=== PATIENT | male | born 1945 | race Hispanic/Latino ===

== ENCOUNTER 2019-05-19 05:30 | Day surgery (SDC) | payer OTHER ==
[~2019-05-19] VITALS: Ht 180.3 cm; Wt 117.9 kg
[~2019-05-19 05:30] MED LIST: ALLBUTEROL; AMLO5TAB9 PO; BENZ-51 PO; BUDE10.2 IH; CHLO25TA3 PO; ERGO500014 PO; IBUP-2070 PO; LISI10TA7 PO; OMEGA; SPIRIVA; TAMS-1 PO
[2019-05-19] MEDS ORDERED: SODIUM CHLORIDE 0.9% 1000ML 1,000 ML IV ONE (05:49)
[2019-05-19 06:57] VITALS: BP 111/76
[2019-05-19] MEDS ORDERED: NITROGLYCERIN 5 MG/ML 10 ML VIAL IV ONE (07:11)
[2019-05-19] MEDS ORDERED: IOHEXOL 350 MG/ML 100ML INFUS..BTL IV ONE (07:11)
[2019-05-19] MEDS ORDERED: FENTANYL CITRATE PF 50 MCG/1 ML 2ML VIAL ONE (07:11)
[2019-05-19] MEDS ORDERED: LIDOCAINE HCL 2% 20ML ONE (07:11)
[2019-05-19] MEDS ORDERED: MIDAZOLAM HCL 1 MG/ML 2ML VIAL ONE (07:11)
[2019-05-19] MEDS ORDERED: IOHEXOL-350 50ML VIAL IV ONE (07:11)
[2019-05-19] MEDS ORDERED: PROPOFOL 10 MG/ML 20ML VIAL IV ONE ×2 (09:02→09:12)
[2019-05-19 09:27] VITALS: BP 82/45
[2019-05-19 09:32] VITALS: BP 92/50
[2019-05-19 09:37] VITALS: BP 103/64
[2019-05-19 09:40] VITALS: BP 113/74
== END 2019-05-19 10:01 | disposition home or self-care (01) ==
LOC: ENDO 05:30 → DAH 05:30 → ENDO 10:01
PROVIDERS: ATTEND Internal Medicine
DX: K59.04 Chronic idiopathic constipation (principal); K63.5 Polyp of colon; K29.50 Unspecified chronic gastritis without bleeding; K64.0 First degree hemorrhoids; K57.30 Diverticulosis of large intestine without perforation or abscess without bleeding; K31.9 Disease of stomach and duodenum, unspecified; J44.9 Chronic obstructive pulmonary disease, unspecified; G47.33 Obstructive sleep apnea (adult) (pediatric); I10 Essential (primary) hypertension; Z86.010 Personal history of colon polyps; Z98.890 Other specified postprocedural states; Z79.899 Other long term (current) drug therapy; Z82.5 Family history of asthma and other chronic lower respiratory diseases
CPT/HCPCS: 43239; 45380; 88305; A4215; A4221; A4222; A4223; A4606; A4620; A4663; J1644; J2250; J2704 ×2; J3010; J3490 ×2; J7030; Q9967

== ENCOUNTER → 2019-07-01 | Outpatient (CLI) | payer OTHER | END | disposition home or self-care (01) | LOC: RAH 08:35 | PROVIDERS: ATTEND Internal Medicine | DX: K80.20 Calculus of gallbladder without cholecystitis without obstruction (principal); R94.5 Abnormal results of liver function studies | CPT/HCPCS: 74181 ==

== ENCOUNTER 2020-04-01 07:00 | Day surgery (SDC) | payer OTHER ==
[~2020-04-01] VITALS: Ht 180.3 cm; Wt 117.5 kg
[~2020-04-01 07:00] MED LIST changes: +AEC81 PO; +AMYL1CAP63 PO; +OMEP-272 PO; +SODIUM CHLORIDE 0.9% 1000ML 1,000 ML IV ONE; +WHEA98PO PO; +[UNRECOGNIZED DRUG - CODE] MC
[2020-04-01 08:08] VITALS: BP 123/70
[2020-04-01] MEDS ORDERED: PROPOFOL 10 MG/ML 20ML VIAL IV ONE (08:21)
[2020-04-01 08:40] VITALS: BP 108/18
[2020-04-01 08:45] VITALS: BP 114/68
[2020-04-01 08:50] VITALS: BP 125/73
== END 2020-04-01 09:20 | disposition home or self-care (01) ==
LOC: ENDO 07:00 → DAH 07:00 → ENDO 09:20
PROVIDERS: ATTEND Internal Medicine
DX: R94.5 Abnormal results of liver function studies (principal); R10.10 Upper abdominal pain, unspecified; I10 Essential (primary) hypertension; J44.9 Chronic obstructive pulmonary disease, unspecified; Z86.010 Personal history of colon polyps; K21.9 Gastro-esophageal reflux disease without esophagitis; K59.04 Chronic idiopathic constipation; K57.30 Diverticulosis of large intestine without perforation or abscess without bleeding; Z79.899 Other long term (current) drug therapy; K31.89 Other diseases of stomach and duodenum; Z20.828 Contact with and (suspected) exposure to other viral communicable diseases
CPT/HCPCS: 43237; 43239; 93005; A4215; A4221; A4222; A4223; A4606; A4620; A4663; C9803; J2704; J7030; U0003